=== PATIENT | female | born 1970 | race Two or more races ===

== ENCOUNTER 2016-12-19 05:51 | Day surgery (SDC) | payer OTHER ==
[2016-12-18 09:53] VITALS: BMI 20.9
[~2016-12-19] VITALS: Ht 165.1 cm; Wt 55.4 kg
[2016-12-19] VITALS (8 sets, daily range): BP systolic 98–119; BP diastolic 60–78; PULSE 54–72; RESP 14–18; Ht 165.1 cm; Wt 55.4 kg
[2016-12-19] MEDS ORDERED: BUPIVACAINE 0.5% (SDV) 30 ML INJ ONE (06:57)
[2016-12-19] MEDS ORDERED: LIDOCAINE 0.5% (MDV) 50 ML INJ ONE (06:57)
[2016-12-19] MEDS ORDERED: POLYMYXIN/BACITRACIN 1L IRRIG ONE (06:57)
[2016-12-19] MEDS ORDERED: DEXAMETHASONE 4 MG/ML 1 ML INJ ONE ×2 (06:57→07:42)
[2016-12-19] MEDS ORDERED: FENTAnyl 50 MCG/ML VIAL ONE (07:34)
--- NOTE | 2016-12-19 07:35 | HPN ---
Date/Time of Note Date/Time of Note DATE: 12/19/16 TIME: 07:35 Interval H&P Admission Note Pt. seen H&P reviewed: No system changes GALA JOHN DPM December 19, 2016 07:35
[2016-12-19] MEDS ORDERED: LIDOCAINE 2% (MDV) 20 ML INJ ONE (07:43)
[2016-12-19] MEDS ORDERED: ETOMIDATE 20 MG INJ ONE (08:00)
[2016-12-19] MEDS ORDERED: GLYCOPYRROLATE 0.4 MG INJ ONE (08:00)
[2016-12-19] MEDS ORDERED: SUCCINYLCHOLINE CHLORIDE 100 MG/5 ML SYG IV ONE (08:00)
[2016-12-19] MEDS ORDERED: PROPOFOL 40 ML ONE (08:00)
[2016-12-19] MEDS ORDERED: LIDOCAINE 2% (SDV) 5 ML INJ ONE (08:00)
[2016-12-19] MEDS ORDERED: NEOSTIGMINE 3 MG/3 ML SYRINGE ONE (08:01)
[2016-12-19] MEDS ORDERED: KETOROLAC 30 MG INJ ONE (08:10)
[2016-12-19] MEDS ORDERED: HYDROmorphONE (0.2 MG/ML) 10ML SYG IV PRN ×3 (08:30)
[2016-12-19] MEDS ORDERED: METOCLOPRAMIDE 10 MG INJ IV PRN (08:30)
[2016-12-19] MEDS ORDERED: ALBUTEROL 0.083% (NEB) 2.5 MG/3 ML AMP HHN ONE (08:30)
[2016-12-19] MEDS ORDERED: FENTAnyl 50 MCG/ML VIAL IV PRN (08:30)
[2016-12-19] MEDS ORDERED: OXYCODONE/ACETAMINOPHEN (5/325) TAB PO PRN (08:30)
[2016-12-19] MEDS ORDERED: DIPHENHYDRAMINE 50 MG INJ IV PRN (08:30)
[2016-12-19] MEDS ORDERED: ONDANSETRON 4 MG INJ IV PRN (08:30)
[2016-12-19] MEDS ORDERED: MEPERIDINE 25 MG INJ IV PRN (08:30)
[2016-12-19] MEDS ORDERED: HYDROCODONE/APAP (5/325) TAB PO PRN (09:00)
--- NOTE | 2016-12-19 11:10 | OPR ---
DATE OF OPERATION: 12/19/2016 PREOPERATIVE DIAGNOSIS: Painful bunion with hallux valgus, left foot. POSTOPERATIVE DIAGNOSIS: Painful bunion with hallux valgus, left foot. OPERATION PERFORMED: Bunionectomy with osteotomy, left first metatarsal. DESCRIPTION OF PROCEDURE: The patient was brought into the operating room, placed on the table in a secure supine position. Cardiac monitoring, IV sedation, and an ankle pneumatic tourniquet were ut ilized for this case. Preoperatively, a total of 10 mL of 0.5% Marcaine plain mixed with 2% lidocai ne plain were infiltrated to the left foot in the form of a Galo block. Upon achieving anesthesia, the left foot and leg were prepped and draped in the usual sterile manner and a pneumatic tourniquet was inflated to 250 mmHg. Procedure #1 was then performed, bunionectomy with osteotomy, left first metatarsal. A 4 cm dorsal medial incision was performed along the metatarsophalangeal joint of the left foot. The incision was deepened and superficial bleeders were cauterized and bovied as margarette cardona. Next, a linear capsulotomy was performed along the capsule of the first metatarsophalangeal kelli int. The capsule was reflected dorsally and plantarly exposing the hypertrophic medial eminence. T he hypertrophic medial eminence was transected with a power sagittal saw. Next, a 0.45 Asad wi re was inserted from medial to lateral, serving as an access guide. The access guide was 1.5 cm pro ximal to the metatarsophalangeal joint. The Chevron osteotomy was then performed at 60 degree angle cuts. The capital fragment was translocated laterally 3 mm and fixated with two 17 mm x 3.0 mm can [employer] [place] screws. Good reduction of the metatarsal primus varus angle was noted. No gapping or separation of the osteotomy site with stable fixation was noted. Good intraoperative range of mo tion of the first metatarsophalangeal joint was seen. The overhanging bone was resected with a ana laura r sagittal saw and then rasped smooth. No sharp edges were left behind. The surgical site was copi ously irrigated with sterile saline mixed with bacitracin solution. The capsule was then closed wit h 2-0 Vicryl simple interrupted sutures. The subcutaneous tissue was closed with 4-0 Vicryl simple interrupted sutures. The skin edges were reapproximated with a running subcuticular 3-0 Prolene sti tch. The ankle pneumatic tourniquet was deflated and immediate hyperemia was noted to all digits. Dry sterile dressing was reapplied to the left foot. The patient left the operating room with vital signs stable and satisfactory. No intraoperative complications were encountered. The patient debbiee rated the above procedure well, will follow up to the office in 1 week. Dictated By: GALA WILL/JOSÉ MIGUEL Conf#: [id number] DID#: [id number]
== END 2016-12-19 09:44 | disposition home or self-care (01) ==
LOC: SDS 05:51
PROVIDERS: ATTEND Podiatrist Primary Podiatric Medicine
DX: M20.12 Hallux valgus (acquired), left foot (principal); M21.612 Bunion of left foot
CPT/HCPCS: 28296; C1713; J1100; J1885; J2710; J3010; J7999; Z7512; Z7610